=== PATIENT | male | born 1960 | race African-American/Black ===

== ENCOUNTER → 2019-01-12 | Outpatient (CLI) | payer MEDICAID | END | disposition home or self-care (01) | LOC: RAD 09:03 | PROVIDERS: ATTEND Orthopaedic Surgery | DX: M79.671 Pain in right foot (principal); R68.84 Jaw pain | CPT/HCPCS: 70160 ==

== ENCOUNTER 2019-04-06 10:39 | Outpatient (CLI) | payer MEDICAID | END 2019-04-06 23:59 | disposition home or self-care (01) | LOC: RAD 10:39 | PROVIDERS: ATTEND Orthopaedic Surgery | DX: M18.12 Unilateral primary osteoarthritis of first carpometacarpal joint, left hand (principal); M19.042 Primary osteoarthritis, left hand ==